=== PATIENT | female | born 1990 | race African-American/Black ===

== ENCOUNTER 2019-08-28 01:07 | Emergency (ER) | payer BC ==
[~2019-08-28] VITALS: Ht 165.1 cm; Wt 90.9 kg
[2019-08-28 01:25] VITALS: BP 159/94
[2019-08-28] MEDS ORDERED: METH4TAB2 PO (01:48)
[2019-08-28] MEDS ORDERED: KETO15CR2 TP (01:48)
--- NOTE | 2019-08-28 01:49 | PHYS DOC ---
Past Medical History Past Medical History: No Pertinent History Past Surgical History: No Surgical History Smoking Status: Never Smoker Alcohol Use: None General Adult EDM: Chief Complaint: ITCHING HPI: HPI: Patient is a 29 year old female who presents with a rash primarily on her truncal region as well as her upper arms that is been present for the last 2 weeks and progressively spreading. Patient states that she has had a rash like this before. When informed that it looks like tinea versicolor, she states that is what she had been diagnosed with. Patient states that she was using some Lotrimin but it has not gotten any better. [] Review of Systems: Review of Systems: Constitutional: Denies fever or chills. [] Respiratory: Denies cough or shortness of breath. [] Cardiovascular: Denies chest pain or edema. [] Integument: Positive rash. [] Neurologic: Denies headache, focal weakness or sensory changes. [] Heart Score: Risk Factors: Risk Factors: DM, Current or recent (<one month) smoker, HTN, HLP, family history of CAD, obesity. Risk Scores: Score 0 - 3: 2.5% MACE over next 6 weeks - Discharge Home Score 4 - 6: 20.3% MACE over next 6 weeks - Admit for Clinical Observation Score 7 - 10: 72.7% MACE over next 6 weeks - Early Invasive Strategies Physical Exam: PE: Constitutional: Well developed, well nourished, no acute distress, non-toxic appearance. [] Cardiovascular: Regular rate and rhythm [] Lungs & Thorax: Bilateral breath sounds clear to auscultation [] Skin: Diffuse rash is noted with slightly hypopigmented lesions, measuring approximately 1+ centimeters in diameter. [] Extremities: No tenderness, no cyanosis, no clubbing, ROM intact, no edema. [] Current Patient Data: Vital Signs: Vital Signs Date Time Temp Pulse Resp B/P (MAP) Pulse Ox O2 Delivery O2 Flow Rate FiO2 08/28/19 01:25 97.5 79 12 159/94 (115) 96 Room Air 97.5 EKG: EKG: [] Radiology/Procedures: Radiology/Procedures: [] Course & Med Decision Making: Course & Med Decision Making Pertinent Labs and Imaging studies reviewed. (See chart for details) [] Dragon Disclaimer: Dragon Disclaimer: This electronic medical record was generated, in whole or in part, using a voice recognition dictation system. Departure Departure Impression: Primary Impression: Tinea versicolor Disposition: HOME, SELF-CARE Condition: STABLE Referrals: NO PCP (PCP) Patient Instructions: Tinea Versicolor (Yeast Infection of the Skin) Scripts Methylprednisolone (MEDROL) 4 Mg Tab.ds.pk 1 PKG PO UD, #1 PKG Prov: BRANDON MAXWELL Jr. DO 08/28/19 Ketoconazole (KETOCONAZOLE) 15 Gm Cream..g. 1 ZIGGY TP BID, #60 GM 1 Refill Prov: BRANDON MAXWELL Jr. DO 08/28/19 BRANDON MAXWELL Jr. DO August 28, 2019 01:49
== END 2019-08-28 01:57 | disposition home or self-care (01) ==
LOC: EDBD 01:07 → ER 01:07
DX: B36.0 Pityriasis versicolor (principal)
CPT/HCPCS: 99283

== ENCOUNTER 2020-02-02 03:03 | Emergency (ER) | payer BC ==
[~2020-02-02] VITALS: Ht 165.1 cm; Wt 90.9 kg
[~2020-02-02 03:03] MED LIST: KETO15CR2 TP; METH4TAB2 PO
[2020-02-02] MEDS ORDERED: HYDR-3164 PO (03:28)
[2020-02-02] MEDS ORDERED: PRED20TA PO (03:28)
[2020-02-02] MEDS ORDERED: AMOX1TAB61 PO (03:28)
[2020-02-02] MEDS ORDERED: CHLO15MO2 PO (03:28)
--- NOTE | 2020-02-02 03:28 | PHYS DOC ---
Past Medical History Past Medical History: No Pertinent History Past Surgical History: No Surgical History Smoking Status: Never Smoker Alcohol Use: None General Adult EDM: Chief Complaint: DENTAL PROBLEM HPI: HPI: Patient is a 29 year old [f__sex] who presents with [] Review of Systems: Review of Systems: Constitutional: Denies fever or chills. [] Eyes: Denies change in visual acuity. [] HENT: Denies nasal congestion or sore throat. [] Respiratory: Denies cough or shortness of breath. [] Cardiovascular: Denies chest pain or edema. [] GI: Denies abdominal pain, nausea, vomiting, bloody stools or diarrhea. [] : Denies dysuria. [] Musculoskeletal: Denies back pain or joint pain. [] Integument: Denies rash. [] Neurologic: Denies headache, focal weakness or sensory changes. [] Endocrine: Denies polyuria or polydipsia. [] Lymphatic: Denies swollen glands. [] Psychiatric: Denies depression or anxiety. [] Heart Score: Risk Factors: Risk Factors: DM, Current or recent (<one month) smoker, HTN, HLP, family history of CAD, obesity. Risk Scores: Score 0 - 3: 2.5% MACE over next 6 weeks - Discharge Home Score 4 - 6: 20.3% MACE over next 6 weeks - Admit for Clinical Observation Score 7 - 10: 72.7% MACE over next 6 weeks - Early Invasive Strategies Current Medications: Current Medications Medications (Trade) Dose Ordered Sig/Lefty Start Time Stop Time Status Last Admin Dose Admin Acetaminophen/ Hydrocodone Bitart (Lortab 5/325) 1 tab 1X ONCE 02/02/20 03:30 02/02/20 03:31 UNV Amoxicillin/ Clavulanate Potassium (Augmentin 875/ 125mg) 1 tab 1X ONCE 02/02/20 03:30 02/02/20 03:31 UNV Dexamethasone (Decadron) 10 mg 1X ONCE 02/02/20 03:30 02/02/20 03:31 UNV Physical Exam: PE: Constitutional: Well developed, well nourished, no acute distress, non-toxic appearance. [] HENT: Normocephalic, atraumatic, bilateral external ears normal, oropharynx moist, no oral exudates, nose normal. [] Eyes: PERRLA, EOMI, conjunctiva normal, no discharge. [] Neck: Normal range of motion, no tenderness, supple, no stridor. [] Cardiovascular:Heart rate regular rhythm, no murmur [] Lungs & Thorax: Bilateral breath sounds clear to auscultation [] Abdomen: Bowel sounds normal, soft, no tenderness, no masses, no pulsatile ma sses. [] Skin: Warm, dry, no erythema, no rash. [] Back: No tenderness, no CVA tenderness. [] Extremities: No tenderness, no cyanosis, no clubbing, ROM intact, no edema. [] Neurologic: Alert and oriented X 3, normal motor function, normal sensory function, no focal deficits noted. [] Psychologic: Affect normal, judgement normal, mood normal. [] EKG: EKG: [] Radiology/Procedures: Radiology/Procedures: [] Course & Med Decision Making: Course & Med Decision Making Pertinent Labs and Imaging studies reviewed. (See chart for details) [] Dragon Disclaimer: [email or web address] Disclaimer: This electronic medical record was generated, in whole or in part, using a voice recognition dictation system. Departure Departure Impression: Primary Impression: Dentalgia Disposition: HOME SELF CARE/HOMELESS Condition: STABLE Referrals: NO PCP (PCP) Patient Instructions: Toothache-Brief Additional Instructions: Please follow closely with a dentist for further management of your dental pain. Scripts Prednisone (PREDNISONE) 20 Mg Tablet 2 TAB PO DAILY, #8 TAB Start this prescription tomorrow, Sunday02/03/2020 Prov: NGUYỄN BURR DO 02/02/20 Chlorhexidine Gluconate (PERIDEX) 15 Ml Mouthwash 15 ML PO BID, #473 ML 0 Refills Prov: NGUYỄN BURR DO 02/02/20 Hydrocodone/Apap 5-325 (NORCO 5-325 TABLET) 1 Each Tablet 0.5-1 TAB PO PRN Q6HRS PRN for PAIN, #10 TAB 0 Refills Prov: NGUYỄN BURR DO 02/02/20 Amoxicillin/Potassium Clav (AUGMENTIN 875-125 TABLET) 1 Each Tablet 1 TAB PO BID, #14 TAB Prov: NGUYỄN BURR DO 02/02/20 NGUYỄN BURR DO Feb 02, 2020 03:28
[2020-02-02] MEDS ORDERED: DEXAMETHASONE 4 MG TABLET PO ONE (04:00)
[2020-02-02] MEDS ORDERED: AMOXICILLIN/K CLAV 875/125MG TABLET. PO ONE (04:00)
[2020-02-02] MEDS ORDERED: HYDROcodone/APAP 5/325MG 1 TAB TABLET PO ONE (04:00)
== END 2020-02-02 03:46 | disposition home or self-care (01) ==
LOC: ER 03:03
DX: K08.89 Other specified disorders of teeth and supporting structures (principal)
CPT/HCPCS: 99284